=== PATIENT | male | born 1960 ===

== ENCOUNTER 2019-01-18 13:25 | Emergency (ER) | payer OTHER, SELFPAY ==
[2019-01-18 13:25] VITALS: BMI 37.1
[2019-01-18 13:40] VITALS: BP 159/89; PULSE 76; TEMP 98.9; O2SAT 95
--- NOTE | 2019-01-18 13:50 | C.PDOC ---
History Of Present Illness 58 yo male come in for evaluation of Right shoulder pain developed for past few hrs after sustained mechanical fall at home . Pt reports, pain is localized over Right shoulder, worse with Right arm movement. Denies head injury, LOC, syncope, headache, dizziness, neck pain, CP, SOB, dyspnea, palpitation, denies deformity, weakness, sensory or vascular deficit to Right arm. Ambulatory, not in any apparent distress. Time Seen by Provider: 01/18/19 13:41 Chief Complaint (Nursing): Upper Extremity Problem/Injury History Per: Patient Past Medical History Reviewed: Historical Data, Nursing Documentation, Vital Signs Vital Signs: Last Vital Signs Temp 98.9 F 01/18/19 13:39 Pulse 76 01/18/19 13:39 Resp 20 01/18/19 13:39 BP 159/89 H 01/18/19 13:39 Pulse Ox 95 01/18/19 13:39 Primary Care Provider: FAMILY PROVIDER,NO - Medical History PMH: Asthma (5 yrs ago) - [facility] Procedures VACCINATION NEC (01/26/14) Family History: States: Unknown Family Hx - Social History Hx Tobacco Use: No Hx Alcohol Use: No Hx Substance Use: No - Immunization History Hx Tetanus Toxoid Vaccination: No Hx Influenza Vaccination: No Hx Pneumococcal Vaccination: No Review Of Systems Except As Marked, All Systems Reviewed And Found Negative. Constitutional: Negative for: Fever, Chills Eyes: Negative for: Vision Change ENT: Negative for: Ear Discharge, Nose Discharge Cardiovascular: Negative for: Chest Pain, Palpitations, Edema, Light Headedness Respiratory: Negative for: Shortness of Breath Gastrointestinal: Negative for: Nausea, Vomiting Genitourinary: Negative for: Incontinence Musculoskeletal: Positive for: Shoulder Pain. Negative for: Neck Pain, Back Pain Skin: Negative for: Rash, Jaundice, Bruising Neurological: Negative for: Weakness, Numbness, Altered Mental Status, Headache, Dizziness Physical Exam - Physical Exam Appears: Well, Non-toxic, No Acute Distress Skin: Normal Color, Warm, No Ecchymosis Head: Atraumatic, Normacephalic Neck: Trachea Midline, No Midline Cervical Tenderness, Supple Chest: Symmetrical, No Deformity, No Tenderness Extremity: Normal ROM (midl discomfort to Right shoulder abduction/extension, no neurovascular deficits), Tenderness (superior aspect Right shoulder. No palpable deofrmity, no skin changes/ no ecchymoses), No Deformity, No Swelling Extremity: Bilateral: Atraumatic Pulses: Right Radial: Normal Neurological/Psych: Oriented x3, Normal Speech, Normal Motor, Normal Sensation, Normal Reflexes ED Course And Treatment O2 Sat by Pulse Oximetry: 95 Pulse Ox Interpretation: Normal - Other Rad Right shoulder X-Ray: Interpreted by Me, Viewed By Me Interpretation: (+) mod DJD over ACJ, ? humeral head cyst. No acute fx or dislocation Progress Note: On re-eval, pt is afebrile, hemodynamicalys table. Non-toxic. Ambulatory with stable gait. head: AT/NC. neck: Supple, (-) midline tenderness. RUE: mod tenderness superior aspect shoulder, no deformity, no neurovascular deficits. imagings review and discussed with pt. Sling applied to Right arm. Pt ref. to f/u with ortho in 2-3 days for re-eavl. return if any new changes Disposition Counseled Patient/Family Regarding: Studies Performed, Diagnosis, Need For Followup, Rx Given - Disposition Referrals: [facility] at [facility] [Outside] Disposition: HOME/ ROUTINE Disposition Time: 14:15 Condition: STABLE Additional Instructions: Sling for 1 week Light duty to Right arm take pain medication as prescribed Follow up with Orthopedist in 2-3 days for re-evaluation return if any new changes Prescriptions: traMADol [Ultram] 50 mg PO TID #7 tab Instructions: Shoulder Sprain, Osteoarthritis (DC) Forms: [employer] (Yakut), Work Excuse Print Language: SOUTH AFRICAN - Clinical Impression Clinical Impression: Shoulder contusion, Arthritis
[2019-01-18 14:46] VITALS: RESP 18
--- NOTE | 2019-01-18 16:22 | RAD ---
Date of service: 01/18/2019 PROCEDURE: Radiographs of the Right Shoulder HISTORY: injury COMPARISON: No prior. TECHNIQUE: 3 views obtained. FINDINGS: BONES: Normal. No fracture. JOINTS: Moderate osteoarthritic changes at the AC joint. SOFT TISSUES: Normal. OTHER FINDINGS: None. IMPRESSION: No evidence of acute fracture or dislocation. Moderate osteoarthritic changes at the AC joint.
== END 2019-01-18 14:46 | disposition home or self-care (01) ==
LOC: C.ER 13:25
DX: S40.011A Contusion of right shoulder, initial encounter (principal); W01.0XXA Fall on same level from slipping, tripping and stumbling without subsequent striking against object, initial encounter; Y92.009 Unspecified place in unspecified non-institutional (private) residence as the place of occurrence of the external cause; M19.011 Primary osteoarthritis, right shoulder